=== PATIENT | female | born 1995 | race Caucasian/White ===

== ENCOUNTER 2020-06-08 10:05 | Outpatient (CLI) | payer BC, SELFPAY ==
--- NOTE | 2020-06-08 10:16 | CT_ITS ---
WS: [id number] CT CHEST TECHNIQUE: Noncontrast CT of the chest with coronal and sagittal reformatted images. CLINICAL INFORMATION: DOLLY'S GRANULOMATOSIS COMPARISON: None. DLP: 964.[address] scans at [facility] use at least one of these dose optimization techniques: automat ed exposure control; mA and/or kV adjustment per patient size (includes targeted exams where dose is matched to clinical indication); or iterative reconstruction. FINDINGS: Hazy subpleural pulmonary opacities right upper lobe laterally and left upper lobe anteriorly. The la rgest in the right upper lobe laterally has a semisolid appearance measuring 12 mm. Slight surroundin g groundglass infiltrate. Associated slight pleural thickening. No cavitation. Left upper lobe opacit y has a chronic appearance likely representing fibrosis. No other suspicious pulmonary opacities. No consolidation or pleural fluid. Normal thyroid gland. No mediastinal or hilar lymphadenopathy. No axillary lymphadenopathy. Adrenal glands are normal. Visualized upper abdominal contents unremarkable. CT/CT chest wo con [id number] IMPRESSION: And left upper lobe anteriorly 1. 12 mm pulmonary opacity right upper lobe with a small amount of surrounding groundglass infiltrate. Findings likely related to patient's Dolly's granulo matosis. No cavitation. Recommend 3-6 month follow-up after treatment. 2. Hazy fibrotic appearing opacity in the left upper lobe has a chronic appear ance. No cavitation. 3. No other suspicious pulmonary opacities. 4. No consolidation or pleural fluid. 5. No mediastinal or hilar lymphadenopathy.
== END 2020-06-08 10:06 | disposition home or self-care (01) ==
LOC: RADWPI 10:11
PROVIDERS: PCP Internal Medicine Pulmonary Disease; Visit Provider Internal Medicine Pulmonary Disease
DX: M31.30 Wegener's granulomatosis without renal involvement (principal)
CPT/HCPCS: 71250